=== PATIENT | female | born 1945 | race Caucasian/White ===

== ENCOUNTER 2017-03-12 17:03 | Emergency (ER) | payer MEDICARE, OTHER ==
[~2017-03-12] VITALS: Ht 157.5 cm; Wt 68.0 kg
[~2017-03-12 17:03] MED LIST: ASPI81 PO; BISA10S PR; CEPH500 PO; CINA30 PO; CLOP75 PO; DSS100 PO; EPOE10I SQ; HYDR-3965 PO; HYDR2I IVP; LEVO25TA9 PO; VITAD1000 PO; ZOLP5 PO
[2017-03-12 20:17] VITALS: BP 157/55
== END 2017-03-12 21:14 | disposition home or self-care (01) ==
LOC: EMS 17:07
DX: S82.002A Unspecified fracture of left patella, initial encounter for closed fracture (principal); I25.2 Old myocardial infarction; E11.29 Type 2 diabetes mellitus with other diabetic kidney complication; N28.9 Disorder of kidney and ureter, unspecified; K21.9 Gastro-esophageal reflux disease without esophagitis; I10 Essential (primary) hypertension; Z79.82 Long term (current) use of aspirin; X58.XXXA Exposure to other specified factors, initial encounter; Y93.89 Activity, other specified; Y92.811 Bus as the place of occurrence of the external cause; Y99.8 Other external cause status
CPT/HCPCS: 29505; 99284

== ENCOUNTER 2018-01-02 12:11 | Emergency (ER) | payer MEDICARE, OTHER ==
[~2018-01-02] VITALS: Ht 160 cm; Wt 60.0 kg
[2018-01-02 12:58] LABS: GLUCOSE,POINT OF CARE 119 MG/DL (70-110)
[2018-01-02 15:13] VITALS: BP 102/54
== END 2018-01-02 16:02 | disposition home or self-care (01) ==
LOC: EMS 12:11
DX: T81.31XA Disruption of external operation (surgical) wound, not elsewhere classified, initial encounter (principal); E03.9 Hypothyroidism, unspecified; E11.9 Type 2 diabetes mellitus without complications; I10 Essential (primary) hypertension; K21.9 Gastro-esophageal reflux disease without esophagitis; I25.2 Old myocardial infarction; Z79.82 Long term (current) use of aspirin; Z90.49 Acquired absence of other specified parts of digestive tract; Z99.2 Dependence on renal dialysis; Y83.8 Other surgical procedures as the cause of abnormal reaction of the patient, or of later complication, without mention of misadventure at the time of the procedure; Y92.89 Other specified places as the place of occurrence of the external cause
CPT/HCPCS: 82962; 99283

== ENCOUNTER 2018-02-19 18:47 | Inpatient (IN) | payer MEDICARE, OTHER ==
[~2018-02-19] VITALS: Ht 149.9 cm; Wt 50.0 kg
[2018-02-19 19:08] LABS: BASOPHILS % (AUTO) 0.2 % (0.0-2.0); EOSINOPHILS % (AUTO) 0.2 % (1.0-6.0); HEMATOCRIT 34.8 % (36-46); HEMOGLOBIN 11.6 g/dL (12.0-16.0); LYMPHOCYTES # (AUTO) 0.7 K/uL (1.0-4.8); LYMPHOCYTES % (AUTO) 3.8 % (22.0-44.0); MEAN CORPUSCULAR HEMOGLOBIN 29.2 pg (26.0-34.0); MEAN CORPUSCULAR HGB CONC 33.4 G/dL (31.0-37.0); MEAN CORPUSCULAR VOLUME 88 fL (80-100); MONOCYTES # (AUTO) 0.5 K/uL (0.1-1.0); MONOCYTES % (AUTO) 2.8 % (2.0-9.0); NEUTROPHILS # (AUTO) 17.2 K/uL (1.8-7.7); PLATELET COUNT (AUTO) 162 K/uL (150-450); RED BLOOD CELL COUNT(AUTO) 3.98 MIL/uL (4.00-5.20); RED CELL DISTRIBUTION WIDTH 17.8 % (11.5-14.5)
[2018-02-19] MEDS ORDERED: NALOXONE HCL 1 MG/ML 2 ML SYG IVP ONE (19:15)
[2018-02-19 19:23] LABS: PROTHROMBIN TIME 10.9 SEC (9.4-11.6)
[2018-02-19 19:24] LABS: ABG BASE EXCESS 4.3 mmol/L (-2.0-3.0); ABG CARBOXYHEMOGLOBIN 2.1 % (0.0-1.5); ABG METHEMOGLOBIN 0.4 % (0.0-1.5); ABG OXYGEN CONTENT 15.8 mL/dL (15.0-23.0); ABG OXYGEN SATURATION 95.1 % (95.0-98.0); ABG OXYHEMOGLOBIN 92.7 % (94.0-100.0); ABG PCO2 41 mmHg (35-45); ABG PH 7.459 (7.35-7.450); ABG TOTAL HEMOGLOBIN 12.1 G/dL (12.0-18.0); O2 DEVICE,BLOOD GAS NRB (ROOM AIR); PO2, ARTERIAL BG 73.2 mmHg (75.0-83.0); SITE, BLOOD GAS RT BRACHIAL; SOURCE, BLOOD GAS ARTERIAL; TEMPERATURE, FAHRENHEIT, BG 99.5 FAHREN (96.0-98.6)
[2018-02-19 19:46] LABS: ALANINE AMINOTRANSFERASE 10 U/L (12-78); ALBUMIN 1.9 g/dL (3.4-5.0); ALKALINE PHOSPHATASE 52 U/L (46-116); ANION GAP 7 mmol/L (8-16); ASPARTATE AMINOTRANSFERASE 21 U/L (15-37); BILIRUBIN,TOTAL 0.8 mg/dL (0.1-1.0); CALCIUM, TOTAL 9.2 mg/dL (8.8-10.5); CARBON DIOXIDE 32 mmol/L (22-29); CHLORIDE 93 mmol/L (98-107); CREATINE KINASE MB 1.2 ng/mL (0-5); CREATINE KINASE, TOTAL 84 U/L (26-192); CREATININE 1.85 mg/dL (0.60-1.30); GLOMERULAR FILTR. RATE CALC 27 mL/min (>60); GLUCOSE,RANDOM 170 mg/dL (70-110); SODIUM SERUM 132 mmol/L (136-145); TOTAL PROTEIN, SERUM 6.9 g/dL (6.4-8.2); UREA NITROGEN, BLOOD 30 mg/dL (7-18)
[2018-02-19 20:01] LABS: POTASSIUM 2.4 mmol/L (3.5-5.1)
[2018-02-19] MEDS ORDERED: POTASSIUM CHLORIDE 10% 40 MEQ/30 ML LIQUID UDCUP PO ONE (20:15)
[2018-02-19] MEDS ORDERED: LEVOFLOXACIN 750 MG/D5% WATER 150 ML IV ONE (20:15)
[2018-02-19 20:26] LABS: B-TYPE NATRIURETIC PEPTIDE > 5000 pg/mL (0-100)
[2018-02-19] MEDS ORDERED: ONDANSETRON HCL 4 MG/2 ML VIAL IVP PRN ×2 (21:15→22:15)
[2018-02-19] MEDS ORDERED: 0.9% SODIUM CHLORIDE 10 ML SYRINGE IVP PRN (21:15)
[2018-02-19] MEDS ORDERED: ACETAMINOPHEN 325 MG TABLET PO PRN (21:15)
[2018-02-19] MEDS ORDERED: ZOLPIDEM TARTRATE 5 MG TABLET PO PRN ×2 (22:15)
[2018-02-19] MEDS ORDERED: PHENYLEPHRINE 200 MG/D5%-WATER 250 ML IV PRN (23:05)
[2018-02-19] MEDS ORDERED: SODIUM CHLORIDE 0.9% 250 ML IV ONE ×2 (23:08→23:50)
[2018-02-19] MEDS ORDERED: NOREPINEPHRINE 4 MG/D5%-WATER 250 ML IV ONE (23:15)
[2018-02-19] MEDS ORDERED: VANCOMYCIN HCL 1 GM/D5% WATER 200 ML IV PRN (23:15)
[2018-02-19] MEDS ORDERED: NOREPINEPHRINE 4 MG/D5%-WATER 250 ML IV PRN (23:15)
[2018-02-19] MEDS ORDERED: VANCOMYCIN HCL 1 GM/D5% WATER 200 ML IV ONE (23:30)
[2018-02-20] VITALS: BP 128/51
[2018-02-20 00:01] LABS: EOSINOPHILS % (AUTO) 0 % (1.0-6.0); HEMATOCRIT 36.3 % (36-46); HEMOGLOBIN 11.9 g/dL (12.0-16.0); LYMPHOCYTES # (AUTO) 0.4 K/uL (1.0-4.8); LYMPHOCYTES % (AUTO) 1.6 % (22.0-44.0); MEAN CORPUSCULAR HEMOGLOBIN 28.9 pg (26.0-34.0); MEAN CORPUSCULAR HGB CONC 32.8 G/dL (31.0-37.0); MEAN CORPUSCULAR VOLUME 88 fL (80-100); MONOCYTES # (AUTO) 0.6 K/uL (0.1-1.0); MONOCYTES % (AUTO) 2.6 % (2.0-9.0); NEUTROPHILS # (AUTO) 21.5 K/uL (1.8-7.7); NEUTROPHILS % (AUTO) 95.8 % (40.0-70.0); PLATELET COUNT (AUTO) 139 K/uL (150-450); RED BLOOD CELL COUNT(AUTO) 4.13 MIL/uL (4.00-5.20); RED CELL DISTRIBUTION WIDTH 17.7 % (11.5-14.5)
[2018-02-20 00:34] LABS: ANION GAP 8 mmol/L (8-16); CARBON DIOXIDE 33 mmol/L (22-29); CHLORIDE 95 mmol/L (98-107); GLUCOSE,RANDOM 204 mg/dL (70-110); SODIUM SERUM 136 mmol/L (136-145); UREA NITROGEN, BLOOD 32 mg/dL (7-18)
[2018-02-20] MEDS: CefTAZidime PENTAHYDRATE 2 GM in DEXTROSE 5%-WATER 50 ML IV SCH ×3 (00:34→23:56)
[2018-02-20] MEDS: HYDROmorphone 2 MG/ML SYRINGE IVP PRN ×2 (00:34→11:44)
[2018-02-20 00:35] LABS: ALANINE AMINOTRANSFERASE 11 U/L (12-78); ALKALINE PHOSPHATASE 59 U/L (46-116); ASPARTATE AMINOTRANSFERASE 20 U/L (15-37); BILIRUBIN,TOTAL 0.7 mg/dL (0.1-1.0); CALCIUM, TOTAL 9.2 mg/dL (8.8-10.5); CREATINE KINASE, TOTAL 86 U/L (26-192); GLOMERULAR FILTR. RATE CALC 25 mL/min (>60); TOTAL PROTEIN, SERUM 6.8 g/dL (6.4-8.2)
[2018-02-20 00:36] LABS: ALBUMIN 1.8 g/dL (3.4-5.0)
[2018-02-20 00:37] LABS: LACTIC ACID 2.5 mmol/L (0.4-2.0); POTASSIUM 2.6 mmol/L (3.5-5.1)
[2018-02-20 00:48] LABS: CREATINE KINASE MB 2.5 ng/mL (0-5)
[2018-02-20] MEDS: HEPARIN SODIUM,PORCINE 5,000 UNITS/ML VIAL SQ SCH ×4 (00:57→23:57)
[2018-02-20] MEDS ORDERED: POTASSIUM CHLORIDE 10% 40 MEQ/30 ML LIQUID UDCUP PO ONE (01:15)
[2018-02-20 04:00] VITALS: BP 113/72
[2018-02-20 05:16] LABS: APPEARANCE,URINE CLOUDY (CLEAR)
[2018-02-20 05:17] LABS: BILIRUBIN,URINE PRELIM. POSITIVE (NEGATIVE); GLUCOSE, URINE (UA) 100 mg/dL (NEGATIVE); KETONES,URINE TRACE mg/dL (NEGATIVE); LEUKOCYTE ESTERASE ,URINE TRACE (NEGATIVE); NITRATE,URINE POSITIVE (NEGATIVE); OCCULT BLOOD,URINE LARGE (NEGATIVE); PROTEIN,URINE SEE CONFIRM (NEGATIVE); UROBILINOGEN,URINE 0.2 mg/dL (<=1.0)
[2018-02-20 05:23] LABS: EOSINOPHILS % (AUTO) 0.3 % (1.0-6.0); HEMATOCRIT 33.1 % (36-46); LYMPHOCYTES # (AUTO) 0.4 K/uL (1.0-4.8); LYMPHOCYTES % (AUTO) 1.8 % (22.0-44.0); MEAN CORPUSCULAR HEMOGLOBIN 30.1 pg (26.0-34.0); MEAN CORPUSCULAR HGB CONC 33.3 G/dL (31.0-37.0); MEAN CORPUSCULAR VOLUME 90 fL (80-100); MONOCYTES # (AUTO) 0.5 K/uL (0.1-1.0); MONOCYTES % (AUTO) 2.2 % (2.0-9.0); NEUTROPHILS # (AUTO) 23.1 K/uL (1.8-7.7); PLATELET COUNT (AUTO) 146 K/uL (150-450); RED BLOOD CELL COUNT(AUTO) 3.66 MIL/uL (4.00-5.20); RED CELL DISTRIBUTION WIDTH 17.6 % (11.5-14.5)
[2018-02-20 05:24] LABS: BACTERIA,URINE Few /HPF (None Seen); SQUAMOUS EPITHELIAL CELL,UR Moderate /LPF (None Seen)
[2018-02-20 05:25] LABS: SULFOSALICYLIC ACID,URINE 3+ (Negative)
[2018-02-20] MEDS: LEVOTHYROXINE SODIUM 25 MCG TABLET PO SCH (05:50)
[2018-02-20 06:05] LABS: NEUTROPHILS % (AUTO) 95.7 % (40.0-70.0)
[2018-02-20 06:54] LABS: ALBUMIN 1.8 g/dL (3.4-5.0); BILIRUBIN,TOTAL 0.6 mg/dL (0.1-1.0); CALCIUM, TOTAL 9.2 mg/dL (8.8-10.5); CREATININE 2.05 mg/dL (0.60-1.30); PHOSPHORUS 1.7 mg/dL (2.5-4.9); POTASSIUM 3.2 mmol/L (3.5-5.1); TOTAL PROTEIN, SERUM 6.6 g/dL (6.4-8.2)
[2018-02-20 08:00] VITALS: BP 105/45
[2018-02-20] MEDS ORDERED: SODIUM CHLORIDE 0.9% IV ONE (08:30)
[2018-02-20] MEDS ORDERED: POTASSIUM ACETATE IV ONE (08:30)
[2018-02-20] MEDS: VITAMIN B COMP/VIT C/FOLIC ACID CAPSULE PO SCH (09:00)
[2018-02-20] MEDS: ASPIRIN 81 MG CHEWABLE TABLET PO SCH (09:00)
[2018-02-20] MEDS: PANTOPRAZOLE SODIUM 40 MG/VIAL IVP SCH (09:07)
[2018-02-20] MEDS: ALBUMIN HUMAN 25%-25GM/100ML 100 ML IV SCH ×3 (09:29→23:56)
[2018-02-20] MEDS ORDERED: POTASSIUM CHLORIDE 10 MEQ in SODIUM CHLORIDE 0.9% 500 ML IV ONE (09:30)
[2018-02-20] MEDS: EPOETIN ALFA 10,000 UNITS/ML 2 ML VIAL SQ SCH (09:30)
[2018-02-20 11:45] VITALS: BP 117/55
[2018-02-20 12:00] VITALS: BP 130/52
[2018-02-20] MEDS ORDERED: VANCOMYCIN HCL 500 MG in DEXTROSE 5%-WATER 100 ML IV SCH (15:00)
[2018-02-20 16:00] VITALS: BP 124/54
[2018-02-20] MEDS ORDERED: LIDOCAINE HCL/PF 1% 2 ML VIAL ONE (17:08)
[2018-02-21] VITALS: BP 121/47
[2018-02-21 04:00] VITALS: BP 124/52
[2018-02-21 05:28] LABS: BASOPHILS % (AUTO) 0.1 % (0.0-2.0); EOSINOPHILS % (AUTO) 0 % (1.0-6.0); HEMATOCRIT 28.5 % (36-46); HEMOGLOBIN 9.4 g/dL (12.0-16.0); LYMPHOCYTES # (AUTO) 0.6 K/uL (1.0-4.8); LYMPHOCYTES % (AUTO) 4.1 % (22.0-44.0); MEAN CORPUSCULAR HEMOGLOBIN 29.1 pg (26.0-34.0); MEAN CORPUSCULAR VOLUME 88 fL (80-100); MONOCYTES # (AUTO) 0.3 K/uL (0.1-1.0); MONOCYTES % (AUTO) 2.1 % (2.0-9.0); NEUTROPHILS # (AUTO) 13.8 K/uL (1.8-7.7); PLATELET COUNT (AUTO) 108 K/uL (150-450); RED BLOOD CELL COUNT(AUTO) 3.24 MIL/uL (4.00-5.20); RED CELL DISTRIBUTION WIDTH 17.3 % (11.5-14.5)
[2018-02-21 05:36] LABS: NEUTROPHILS % (AUTO) 93.7 % (40.0-70.0)
[2018-02-21 05:58] LABS: BILIRUBIN,TOTAL 0.9 mg/dL (0.1-1.0); CALCIUM, TOTAL 9.4 mg/dL (8.8-10.5); CREATININE 1.17 mg/dL (0.60-1.30); TOTAL PROTEIN, SERUM 6.8 g/dL (6.4-8.2)
[2018-02-21] MEDS: LEVOTHYROXINE SODIUM 25 MCG TABLET PO SCH (06:25)
[2018-02-21 08:00] VITALS: BP 135/56
[2018-02-21] MEDS: HEPARIN SODIUM,PORCINE 5,000 UNITS/ML VIAL SQ SCH ×2 (08:07→16:00)
[2018-02-21] MEDS: ALBUMIN HUMAN 25%-25GM/100ML 100 ML IV SCH ×2 (08:08→17:32)
[2018-02-21] MEDS: ASPIRIN 81 MG CHEWABLE TABLET PO SCH (09:23)
[2018-02-21] MEDS: PANTOPRAZOLE SODIUM 40 MG/VIAL IVP SCH (09:23)
[2018-02-21] MEDS: MetroNIDAZOLE 500 MG/NACL 100 ML IV SCH ×2 (09:23→18:41)
[2018-02-21] MEDS: METOPROLOL TARTRATE 25 MG TABLET PO SCH ×2 (09:24→20:03)
[2018-02-21] MEDS: THIAMINE HCL 100 MG TABLET NG SCH (09:24)
[2018-02-21] MEDS: VITAMIN B COMP/VIT C/FOLIC ACID CAPSULE PO SCH (09:24)
[2018-02-21] MEDS: CefTAZidime PENTAHYDRATE 2 GM in DEXTROSE 5%-WATER 50 ML IV SCH (11:41)
[2018-02-21 12:00] VITALS: BP 129/52
[2018-02-21 15:44] VITALS: BP 126/47
[2018-02-21] MEDS ORDERED: SODIUM CHLORIDE 0.9% 100 ML ONE (17:14)
[2018-02-21 18:57] VITALS: BP 130/60
[2018-02-22] VITALS (7 sets, daily range): BP systolic 110–125; BP diastolic 33–72
[2018-02-22] MEDS: CefTAZidime PENTAHYDRATE 2 GM in DEXTROSE 5%-WATER 50 ML IV SCH ×3 (00:15→23:10)
[2018-02-22] MEDS: HEPARIN SODIUM,PORCINE 5,000 UNITS/ML VIAL SQ SCH ×4 (00:15→23:10)
[2018-02-22] MEDS: HYDROmorphone 2 MG/ML SYRINGE IVP PRN ×3 (00:50→19:00)
[2018-02-22] MEDS: ALBUMIN HUMAN 25%-25GM/100ML 100 ML IV SCH ×4 (00:54→23:54)
[2018-02-22] MEDS: MetroNIDAZOLE 500 MG/NACL 100 ML IV SCH ×3 (01:59→18:48)
[2018-02-22] MEDS: LEVOTHYROXINE SODIUM 25 MCG TABLET PO SCH (06:15)
[2018-02-22 06:54] LABS: EOSINOPHILS % (AUTO) 0 % (1.0-6.0); HEMATOCRIT 25.8 % (36-46); HEMOGLOBIN 8.5 g/dL (12.0-16.0); LYMPHOCYTES # (AUTO) 0.6 K/uL (1.0-4.8); LYMPHOCYTES % (AUTO) 3.6 % (22.0-44.0); MEAN CORPUSCULAR VOLUME 91 fL (80-100); MONOCYTES # (AUTO) 0.4 K/uL (0.1-1.0); MONOCYTES % (AUTO) 2.2 % (2.0-9.0); NEUTROPHILS # (AUTO) 15.7 K/uL (1.8-7.7); RED BLOOD CELL COUNT(AUTO) 2.83 MIL/uL (4.00-5.20); RED CELL DISTRIBUTION WIDTH 17.8 % (11.5-14.5)
[2018-02-22 07:02] LABS: NEUTROPHILS % (AUTO) 94.2 % (40.0-70.0)
[2018-02-22 07:23] LABS: ALBUMIN 3.2 g/dL (3.4-5.0); CALCIUM, TOTAL 9.7 mg/dL (8.8-10.5); CREATININE 1.77 mg/dL (0.60-1.30); POTASSIUM 3.6 mmol/L (3.5-5.1); TOTAL PROTEIN, SERUM 6.8 g/dL (6.4-8.2); VANCOMYCIN,RANDOM 18.1 mcg/mL (25.0-50.0)
[2018-02-22] MEDS ORDERED: VANCOMYCIN HCL 1 GM/D5% WATER 200 ML IV ONE (08:00)
[2018-02-22 08:34] LABS: PLATELET COUNT (AUTO) 99 K/uL (150-450)
[2018-02-22] MEDS: ASPIRIN 81 MG CHEWABLE TABLET PO SCH (09:00)
[2018-02-22] MEDS ORDERED: ZINC SULFATE 220 MG CAPSULE NG SCH (09:00)
[2018-02-22] MEDS: PANTOPRAZOLE SODIUM 40 MG/VIAL IVP SCH (10:07)
[2018-02-22] MEDS: VITAMIN B COMP/VIT C/FOLIC ACID CAPSULE PO SCH (10:12)
[2018-02-22] MEDS: ZINC SULFATE 220 MG CAPSULE NG SCH (10:12)
[2018-02-22] MEDS: ASCORBIC ACID 500 MG TABLET NG SCH (10:13)
[2018-02-22] MEDS: THIAMINE HCL 100 MG TABLET NG SCH (10:13)
[2018-02-22] MEDS: METOPROLOL TARTRATE 25 MG TABLET PO SCH ×2 (10:13→23:09)
[2018-02-22] MEDS ORDERED: SODIUM CHLORIDE 0.9% 0 ML ONE (11:03)
[2018-02-22] MEDS ORDERED: SODIUM CL IRRIG SOLN BAG 0 ML IRRIG ONE (11:03)
[2018-02-22] MEDS ORDERED: GELATIN SPONGE,ABSORBABLE 100 MM TP ONE (11:03)
[2018-02-22] MEDS ORDERED: THROMBIN, BOVINE 20000 UNITS/VIAL POWDER TP ONE (11:04)
[2018-02-22] MEDS ORDERED: BACITRACIN 50,000 UNITS/VIAL ONE (11:04)
[2018-02-22] MEDS ORDERED: SODIUM HYPOCHLORITE 0.25% [HALF STRENGTH] 473 ML SOLUTION TP ONE (11:15)
[2018-02-22] MEDS ORDERED: SODIUM CHLORIDE 0.9% 1,000 ML IV ONE (11:30)
[2018-02-22] MEDS ORDERED: SODIUM CHLORIDE 0.9% 250 ML IV ONE (23:51)
[2018-02-23] VITALS (14 sets, daily range): BP systolic 91–135; BP diastolic 21–86
[2018-02-23] MEDS ORDERED: SODIUM CHLORIDE 0.9% 250 ML IV ONE (00:37)
[2018-02-23] MEDS: MetroNIDAZOLE 500 MG/NACL 100 ML IV SCH ×3 (04:17→17:13)
[2018-02-23] MEDS: HYDROmorphone 2 MG/ML SYRINGE IVP PRN ×2 (04:54→15:34)
[2018-02-23 05:13] LABS: C.DIFF GDH ANTIGEN, Stool Positive (Negative)
[2018-02-23 05:15] LABS: C.DIFF TOXINS A&B, Stool Negative (Negative)
[2018-02-23] MEDS: LEVOTHYROXINE SODIUM 25 MCG TABLET PO SCH (06:03)
[2018-02-23 07:59] LABS: BASOPHILS % (AUTO) 0.6 % (0.0-2.0); EOSINOPHILS % (AUTO) 0 % (1.0-6.0); HEMOGLOBIN 10.3 g/dL (12.0-16.0); LYMPHOCYTES # (AUTO) 0.6 K/uL (1.0-4.8); LYMPHOCYTES % (AUTO) 3.8 % (22.0-44.0); MEAN CORPUSCULAR HEMOGLOBIN 29.2 pg (26.0-34.0); MEAN CORPUSCULAR HGB CONC 33.3 G/dL (31.0-37.0); MEAN CORPUSCULAR VOLUME 88 fL (80-100); MONOCYTES # (AUTO) 0.7 K/uL (0.1-1.0); MONOCYTES % (AUTO) 4.1 % (2.0-9.0); PLATELET COUNT (AUTO) 77 K/uL (150-450); RED BLOOD CELL COUNT(AUTO) 3.54 MIL/uL (4.00-5.20); RED CELL DISTRIBUTION WIDTH 17.4 % (11.5-14.5)
[2018-02-23] MEDS: HEPARIN SODIUM,PORCINE 5,000 UNITS/ML VIAL SQ SCH ×2 (08:00→15:33)
[2018-02-23 08:01] LABS: NEUTROPHILS % (AUTO) 91.5 % (40.0-70.0)
[2018-02-23 08:22] LABS: ALBUMIN 3.5 g/dL (3.4-5.0); CREATININE 2.29 mg/dL (0.60-1.30); POTASSIUM 3.6 mmol/L (3.5-5.1); VANCOMYCIN,RANDOM 29.5 mcg/mL (25.0-50.0)
[2018-02-23] MEDS: METOPROLOL TARTRATE 25 MG TABLET PO SCH (09:00)
[2018-02-23] MEDS: ALBUMIN HUMAN 25%-25GM/100ML 100 ML IV SCH ×2 (11:38→15:33)
[2018-02-23] MEDS: EPOETIN ALFA 10,000 UNITS/ML 2 ML VIAL SQ SCH (11:39)
[2018-02-23] MEDS ORDERED: ACETAMINOPHEN 325 MG TABLET PO PRN (11:45)
[2018-02-23] MEDS: ZINC SULFATE 220 MG CAPSULE NG SCH (13:51)
[2018-02-23] MEDS: ASCORBIC ACID 500 MG TABLET NG SCH (13:51)
[2018-02-23] MEDS: THIAMINE HCL 100 MG TABLET NG SCH (13:51)
[2018-02-23] MEDS: ASPIRIN 81 MG CHEWABLE TABLET PO SCH (13:51)
[2018-02-23] MEDS: VITAMIN B COMP/VIT C/FOLIC ACID CAPSULE PO SCH (13:51)
[2018-02-23] MEDS: CefTAZidime PENTAHYDRATE 2 GM in DEXTROSE 5%-WATER 50 ML IV SCH (13:52)
[2018-02-23] MEDS: PANTOPRAZOLE SODIUM 40 MG/VIAL IVP SCH (13:52)
[2018-02-23] MEDS ORDERED: ASCO500 PO (18:23)
[2018-02-23] MEDS ORDERED: [UNRECOGNIZED DRUG - CODE] IV (18:23)
[2018-02-23] MEDS ORDERED: [UNRECOGNIZED DRUG - CODE] IV (18:24)
[2018-02-23] MEDS ORDERED: EPOE10003 SQ (18:25)
[2018-02-23] MEDS ORDERED: HEPA500018 SQ (18:26)
[2018-02-23] MEDS ORDERED: METO25 PO (18:26)
[2018-02-23] MEDS ORDERED: METR500P3 IV (18:28)
[2018-02-23] MEDS ORDERED: PANT40I IV (18:28)
[2018-02-23] MEDS ORDERED: THIA100T67 NG (18:30)
[2018-02-23] MEDS ORDERED: ZINC220 PO (18:32)
[2018-02-23] MEDS ORDERED: FOLI1CAP2 PO (18:32)
[2018-02-23] MEDS ORDERED: ACET-2902 NG (18:33)
[2018-02-23] MEDS ORDERED: ONDA4AMP IV (18:34)
[2018-02-23] MEDS ORDERED: VANC1IV IV (18:34)
== END 2018-02-23 20:15 | DRG 871 ==
LOC: EMS 18:48 → ICU 21:03 → 5S 02-21 15:25
PROVIDERS: ADMIT Hospitalist; ATTEND Hospitalist
PROC: 5A1D70Z Performance of Urinary Filtration, Intermittent, Less than 6 Hours Per Day (ICD-10-PCS; 2018-02-20)
PROC: 30233N1 Transfusion of Nonautologous Red Blood Cells into Peripheral Vein, Percutaneous Approach (ICD-10-PCS; principal; 2018-02-23)
PROC: 5A1D70Z Performance of Urinary Filtration, Intermittent, Less than 6 Hours Per Day (ICD-10-PCS; 2018-02-23)
DX: A41.9 Sepsis, unspecified organism (principal); J96.90 Respiratory failure, unspecified, unspecified whether with hypoxia or hypercapnia; J69.0 Pneumonitis due to inhalation of food and vomit; E43 Unspecified severe protein-calorie malnutrition; L89.94 Pressure ulcer of unspecified site, stage 4; I13.2 Hypertensive heart and chronic kidney disease with heart failure and with stage 5 chronic kidney disease, or end stage renal disease; N18.6 End stage renal disease; E87.1 Hypo-osmolality and hyponatremia; Z66 Do not resuscitate; K21.9 Gastro-esophageal reflux disease without esophagitis; J44.9 Chronic obstructive pulmonary disease, unspecified; I50.9 Heart failure, unspecified; I25.10 Atherosclerotic heart disease of native coronary artery without angina pectoris; E87.6 Hypokalemia; E78.5 Hyperlipidemia, unspecified; E11.51 Type 2 diabetes mellitus with diabetic peripheral angiopathy without gangrene; E11.22 Type 2 diabetes mellitus with diabetic chronic kidney disease; E03.9 Hypothyroidism, unspecified; D64.9 Anemia, unspecified; Z74.01 Bed confinement status; Z99.2 Dependence on renal dialysis; Z90.49 Acquired absence of other specified parts of digestive tract; Z89.511 Acquired absence of right leg below knee; Z90.10 Acquired absence of unspecified breast and nipple; Z86.73 Personal history of transient ischemic attack (TIA), and cerebral infarction without residual deficits; Z85.3 Personal history of malignant neoplasm of breast; I25.2 Old myocardial infarction; Z88.0 Allergy status to penicillin
CPT/HCPCS: 51702; 70450; 74018; 82805; 83605; 83735; 84100; 84145; 84443; 86850; 86900; 86901; 86920; 87040; 87070; 87081; 87086; 87106; 87205; 87324; 87340; 87449; 90935; 92526; 92610; 93005; 94799; 96365; 96375; 99291; C9113; G0480; J0713; J0885; J1170; J1644; J1956; J2310; J2370; J3370; J3480; J3490; J7030; J7040; J7050; J7060; P9016; P9046